=== PATIENT | female | born 2005 | race Hispanic/Latino ===

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

== ENCOUNTER 2025-01-13 04:56 | Emergency (ER) | payer BC, OTHER ==
[~2025-01-13] VITALS: Ht 167.6 cm; Wt 65.8 kg
[~2025-01-13 04:56] MED LIST: AMOXICILLIN500 MG PO
[2025-01-13] MEDS ORDERED: KETOROLAC TROMETHAMINE 30 MG/ML VIAL IV ONE (05:15)
[2025-01-13 05:30] LABS: BLOOD/HGB, URINE NEGATIVE (Negative); KETONE, URINE NEGATIVE (Negative); LEUK ESTERASE, URINE NEGATIVE (negative); NITRITE, URINE NEGATIVE (negative)
[2025-01-13 05:31] LABS: MCH 29.7 PG (25.6-32.2); MCHC 34.4 g/dL (32.2-35.5); MCV 86.4 fL (79.4-94.8); RBC 4.27 M/uL (3.93-5.22)
[2025-01-13 05:48] LABS: ALT (SGPT) 134.0 U/L (14-59); AST (SGOT) 77.0 U/L (15-37); GLOMERULAR FILTRATION RATE,EST 127.0 mL/min (>60); PROTEIN, TOTAL 7.2 g/dL (6.4-8.2); UREA NITROGEN 6.0 mg/dL (7-18)
[2025-01-13 06:05] LABS: BANDS, MANUAL DIFF 21; EOSINOPHILS, MANUAL DIFF 1; LYMPHOCYTES, MANUAL DIFF 47; MONOCYTES, MANUAL DIFF 1; NEUTROPHILS, MANUAL DIFF 30
[2025-01-13 07:13] LABS: N. GONORRRHOEAE BY PCR NOT DETECTED (NOT DETECT)
[2025-01-13] MEDS ORDERED: MAGNESIUM SULFATE 2 GM/50 ML BAG IV ONE (07:30)
[2025-01-13] MEDS ORDERED: HYDROCODON-ACE1 EA10 PO (08:12)
[2025-01-13] MEDS ORDERED: ONDANSETRON ODT8 MG PO (08:12)
[2025-01-13] MEDS ORDERED: ONDANSETRON 4 MG HOME.PACK SL ONE (08:15)
[2025-01-13] MEDS ORDERED: HYDROCODONE BIT/ACETAMINOPHEN 5/325 MG 1 TAB HOME.PACK PO ONE (08:15)
[2025-01-13 08:48] VITALS: BP 122/88
== END 2025-01-13 08:49 | disposition home or self-care (01) ==
LOC: ED 04:56
PROVIDERS: Family Medicine
DX: R10.12 Left upper quadrant pain (principal); R11.2 Nausea with vomiting, unspecified; Z88.0 Allergy status to penicillin
CPT/HCPCS: 36415; 76705; 80053; 81003; 83735; 84703; 85025; 96365; 96375; 99284-25; A9270; J1790; J1885; J3475